=== PATIENT | female | born 1960 | race Caucasian/White ===

== ENCOUNTER 2024-10-31 09:01 | Outpatient (CLI) | payer BC | END 2024-10-31 09:02 | disposition home or self-care (01) | LOC: CSHSLEEP 09:01 | PROVIDERS: ATTEND Internal Medicine Critical Care Medicine | DX: G47.33 Obstructive sleep apnea (adult) (pediatric) (principal); R53.83 Other fatigue; R06.83 Snoring | CPT/HCPCS: 95800 ==

== ENCOUNTER 2025-05-20 11:28 | Emergency (ER) | payer BC ==
[2025-05-20 13:13] LABS: Glucose, Urine (Dipstick) Normal (Negative); Leukocyte 25 (Negative); Protein, Urine (Dipstick) Negative (Neg-Trace); Specific Gravity, Urine 1.015 (1.005-1.030)
[2025-05-20] MEDS ORDERED: Ketorolac Tromethamine 30 MG (1 mL) VIAL ONE (13:13)
[2025-05-20] MEDS ORDERED: cefTRIAXone (ROCEPHIN) 2 GM VIAL ONE (13:13)
[2025-05-20 13:21] LABS: Bacteria/HPF Rare-Few HPF (None Seen); CAUTI Indications for Culture Alt mental st,lethar; RBC/HPF None Seen HPF (0-3); Urine Culture Reflex No No; WBC/HPF 0-3 HPF (0-3)
[2025-05-20] MEDS ORDERED: Iopamidol 300 61% 100 ML VIAL FS ONE (13:24)
[2025-05-20 13:38] LABS: #Basophils 0.03 10x3/uL (0.0-0.2); #Eosinophils 0.27 10x3/uL (0.0-0.5); #Monocytes 0.64 10x3/uL (0.0-1.1); #Neutrophils 3.64 10x3/uL (1.5-8.4); %Basophils 0.4 % (0.0-2.0); %Eosinophils 4.0 % (0.0-6.0); %Lymphocytes 31.4 % (18.0-47.0); %Monocytes 9.5 % (0.0-10.0); %Neutrophils 54.3 % (40.0-75.0); Hematocrit 40.2 % (34.9-44.5); Hemoglobin 13.6 g/dL (12.0-15.5); Mean Corpuscular Hemoglobin 28.1 pg (27.0-33.0); Mean Corpuscular Volume 83.1 fL (81.6-98.3); Platelet Count 302 10x3/uL (150-450); Red Blood Cell (RBC) Count 4.84 10x6/uL (3.90-5.03); White Blood Cell (WBC) Count 6.72 10x3/uL (3.5-10.5)
[2025-05-20 13:59] LABS: ALT (SGPT) 18 U/L (Less than 34); AST (SGOT) 21 U/L (11-34); Albumin 4.1 g/dL (3.1-4.5); Alkaline Phosphatase 80 U/L (40-110); Anion Gap 17 mmol/L (10-20); BUN (Urea Nitrogen) 18 mg/dL (9.8-20.1); Bilirubin, Total 0.9 mg/dL (0.3-1.2); Calc. Creatinine Clearance 0 mL/min (70-130); Calcium 9.5 mg/dL (7.8-10.44); Carbon Dioxide 24 mmol/L (23-31); Chloride 105 mmol/L (98-107); Globulin 3.3 g/dL (2.4-3.5); Glucose 101 mg/dL (80-115); Lipase 19 U/L (8-78); Potassium 3.3 mmol/L (3.5-5.1); Sodium 143 mmol/L (136-145)
== END 2025-05-20 15:18 | disposition home or self-care (01) ==
LOC: CSHERS 11:28
DX: N39.0 Urinary tract infection, site not specified (principal); K44.9 Diaphragmatic hernia without obstruction or gangrene; I10 Essential (primary) hypertension
CPT/HCPCS: 36415; 74177; 80053; 81001; 83605; 83690; 85025; 87040; 87086; 96365; J0696; J1885; Q9967